=== PATIENT | male | born 1945 | race Caucasian/White ===

== ENCOUNTER 2025-08-10 13:44 | Outpatient (CLI) | payer MEDICARE, BC ==
[2025-08-10 14:31] LABS: Estimated GFR - POC 35.0
== END 2025-08-10 13:45 | disposition home or self-care (01) ==
LOC: SCSMRI 13:44
PROVIDERS: ATTEND Radiology Radiation Oncology
DX: C61 Malignant neoplasm of prostate (principal); C79.51 Secondary malignant neoplasm of bone; M51.35 Other intervertebral disc degeneration, thoracolumbar region; M51.369 Other intervertebral disc degeneration, lumbar region without mention of lumbar back pain or lower extremity pain; M51.379 Other intervertebral disc degeneration, lumbosacral region without mention of lumbar back pain or lower extremity pain; M48.061 Spinal stenosis, lumbar region without neurogenic claudication; M48.07 Spinal stenosis, lumbosacral region; M48.05 Spinal stenosis, thoracolumbar region
CPT/HCPCS: 36415; 72158; 82565